=== PATIENT | female | born 1965 | race African-American/Black ===

== ENCOUNTER 2016-09-22 22:13 | Inpatient (IN) | payer OTHER ==
[~2016-09-22] VITALS: Ht 177.8 cm; Wt 122.4 kg
[2016-09-23] VITALS (13 sets, daily range): BP systolic 82–151; BP diastolic 53–88; PULSE 93–114; RESP 17–20; Ht 177.8 cm; Wt 122.4 kg
[2016-09-23] MEDS ORDERED: IBUP800T25 PO (01:53)
[2016-09-23] MEDS ORDERED: LORA10TA3 PO (01:53)
[2016-09-23] MEDS ORDERED: ELVI1TAB3 PO (01:53)
[2016-09-23] MEDS ORDERED: BENA20TA48 PO (01:53)
[2016-09-23] MEDS ORDERED: BEN50 PO (01:53)
[2016-09-23] MEDS ORDERED: ACET500T98 PO (01:53)
--- NOTE | 2016-09-23 02:10 | HP ---
Date/Time of Note Date/Time of Note DATE: 09/23/16 TIME: 02:10 Assessment/Plan VTE Prophylaxis VTE Prophylaxis Intervention: other (Lovenox) Assessment/Plan Assessment/Plan 1) COPD Exacerbation - DuoNeb QID - Albuterol Neb Q 2 hours prn - Prednisone daily - 5 days of steroids total, starting 09/22/16 unless taper is indicated at discharge - Biaxin 500 mg BID - Guaifenecin LA 1200 mg BID 2) HIV - Need to obtain patient's home medication, Genvoya, or work out alternative with hospital pharmacy - Pharmacist and patient's RN notified. HPI/ROS Admit Date/Time Admit Date/Time Sep 23, 2016 at 00:24 Hx of Present Illness This is a transfer patient from [facility]. She is an HIV patient and HIV smoker who "quit just less than 30 days ago". She presented to [facility] with SOB x 2 days. No fever. WBCs = 8.0. CXR with no acute findings. She was thought to be having a COPD Exacerbation, though patient denied having that diagnosis, and was given steroids and breathing treatments. She improved, and the plan was to send her home, but she started wheezing again. The decision was made to transfer her. Additional labs done at [facility] include: Urin HCG: Negative; Influenza A & B: Negative; Troponin I < 0.012. ROS Constitutional: No chills, No febrile Eyes: No discharge, No visual change ENT: No congestion, No dysphagia, No sore throat Respiratory: cough, shortness of breath Cardiovascular: No chest pain, No edema, No palpitations Gastrointestinal: No diarrhea, No nausea, No vomiting Genitourinary: No dysuria, No hematuria Musculoskeletal: No back pain, No neck pain Skin: No pruritis, No rash Neurologic: headache (Tylenol ES, 2 tabs offered, but patient requests Sparks. "It is what works for me."), No dizziness, No focal-weakness Endocrine: No polydypsia, No polyuria Lymphatic: No lymphadema, No tender nodes Immunologic: immunodeficiency, No pruritis PMH/Family/Social Past Medical History Medical History: other (HIV) Social History Smoking Status: Former smoker (Heavy smoker who "quit less than 30 days ago.) Exam/Review of Systems Vital Signs Vitals Vital Signs Date Time Temp Pulse Resp B/P Pulse Ox O2 Delivery O2 Flow Rate FiO2 09/23/16 01:11 98.2 117 18 139/64 94 Exam Constitutional: alert, oriented, other (Sleeping on left side. Obese female in NAD, breathing deeply and noisily, rouses easily.) Psych: no complaints Head: atraumatic, normocephalic Eyes: nl sclera ENMT: mucosa pink and moist, nl external ears & nose, nl lips & teeth Neck: non-tender, supple Respiratory: normal air movement, No clear to auscultation (Coarse breath sounds throughout) Cardiovascular: nl pulses, regular rate and rhythm Gastrointestinal: non-tender (Unable to palpate internal organs well due to body habitus,), soft (obese) Neurological: CLINICAL ADMINISTRATIVE COORDINATOR II-XII intact (Grossly), nl mental status, nl speech, nl strength Skin: nl turgor (Normal temperature and moisture. No obvious rash.) Lymph: nl lymph nodes (Cervical) RICHAR MENJIVAR DO Sep 23, 2016 02:10
[2016-09-23] MEDS ORDERED: NACL 0.9% 3 ML SYG IV SCH (02:30)
[2016-09-23] MEDS ORDERED: ONDANSETRON 4 MG TAB PO PRN (02:30)
[2016-09-23] MEDS: ALBUTEROL 0.083% (NEB) 2.5 MG/3 ML AMP HHN PRN ×2 (03:18→03:19)
[2016-09-23] MEDS ORDERED: IBUPROFEN 800 MG TAB PO PRN (07:30)
[2016-09-23] MEDS ORDERED: ACETAMINOPHEN 500 MG TAB PO PRN (07:30)
[2016-09-23] MEDS: BENAZEPRIL 20 MG TAB NGT SCH (08:41)
[2016-09-23] MEDS: ENOXAPARIN 30 MG/0.3 ML SYG SC SCH (08:48)
[2016-09-23] MEDS ORDERED: predniSONE 20 MG TAB PO SCH (09:00)
[2016-09-23] MEDS ORDERED: ALBUTEROL/IPRATROPIUM (NEB) 3 ML AMP HHN SCH (09:00)
[2016-09-23] MEDS: CLARITHROMYCIN 500 MG TAB PO SCH ×2 (09:33→20:08)
[2016-09-23] MEDS: GUAIFENESIN LA 600 MG TABSR PO SCH ×2 (09:33→20:08)
[2016-09-23] MEDS: LORATADINE 10 MG TAB GTB SCH (09:42)
[2016-09-23] MEDS ORDERED: ALBUTEROL/IPRATROPIUM (NEB) 3 ML AMP HHN PRN (12:00)
[2016-09-23 12:30] LABS: ADD SCAN DIFF NO
[2016-09-23 12:43] LABS: HEMATOCRIT 34.6 % (37.0-47.0); HEMOGLOBIN 10.8 g/dl (12.0-16.0); LYMPHOCYTES # 0.9 10^3/ul (0.8-2.9); LYMPHOCYTES % 8.1 % (15.0-51.0); MEAN CORPUSCULAR HEMOGLOBIN 26.9 pg (29.0-33.0); MEAN CORPUSCULAR HGB CONC 31.2 g/dl (32.0-37.0); MEAN CORPUSCULAR VOLUME 86.1 fl (82.0-101.0); MEAN PLATELET VOLUME 11.2 fl (7.4-10.4); MONOCYTE # 0.8 10^3/ul (0.3-0.9); MONOCYTES % 6.8 % (0.0-11.0); NEUTROPHIL # 9.6 10^3/ul (1.6-7.5); NEUTROPHILS % 83.6 % (39.0-77.0); PLATELET COUNT 181 10^3/UL (140-415); RED BLOOD COUNT 4.02 10^6/ul (4.20-5.40); RED CELL DISTRIBUTION WIDTH 15.5 % (11.5-14.5); WHITE BLOOD COUNT 11.5 10^3/ul (4.8-10.8)
[2016-09-23 12:45] LABS: ALBUMIN 4.5 g/dl (3.3-4.9)
[2016-09-23 12:46] LABS: POTASSIUM 4.7 mmol/L (3.5-5.1)
[2016-09-23 12:48] LABS: ALBUMIN/GLOBULIN RATIO 1.36; CREATININE 0.82 mg/dl (0.44-1.00); TOTAL PROTEIN 7.8 g/dl (6.1-8.1)
[2016-09-23 12:49] LABS: CALCIUM 9.9 mg/dl (8.4-10.2); MAGNESIUM 2.3 mg/dl (1.7-2.5); PHOSPHORUS 2.5 mg/dl (2.5-4.9)
[2016-09-23] MEDS: ALBUTEROL/IPRATROPIUM (NEB) 3 ML AMP HHN SCH ×3 (12:51→21:25)
[2016-09-23 13:20] LABS: THYROID STIMULATING HORMONE 0.187 MIU/L (0.465-4.680)
[2016-09-23] MEDS: METHYLPREDNISOLONE 125 MG INJ IV SCH ×3 (13:28→23:30)
[2016-09-23 14:51] LABS: ADD UMIC NO; URINE BILIRUBIN (Dip) NEGATIVE (NEGATIVE); URINE BLOOD (Dip) NEGATIVE (NEGATIVE); URINE COLOR LT. YELLOW (YELLOW); URINE KETONES (Dip) NEGATIVE (NEGATIVE); URINE LEUKOCYTE ESTERASE (Dip) NEGATIVE (NEGATIVE); URINE NITRITE (Dip) NEGATIVE (NEGATIVE); URINE TOTAL PROTEIN (Dip) NEGATIVE (NEGATIVE); URINE UROBILINOGEN (Dip) 0.2 E.U./dL (0.1-1.0)
[2016-09-23 15:14] LABS: OPIATES Positive (NEGATIVE)
[2016-09-23 15:21] LABS: BARBITURATES Negative (NEGATIVE); BENZODIAZEPINES Negative (NEGATIVE); CANNABINOIDS Negative (NEGATIVE); COCAINE Negative (NEGATIVE)
--- NOTE | 2016-09-23 15:39 | RADRPT ---
PROCEDURE: XR Chest. CLINICAL INDICATION: Shortness of breath. TECHNIQUE: Single frontal view. COMPARISON: None. FINDINGS: There are low lung volumes and mild atelectasis at the lung bases. There is mild interstitial diseas e bilaterally consistent with pulmonary edema. The lungs are otherwise clear. The heart is mildly enlarged. There is no pleural effusion. There is no pneumothorax. IMPRESSION: 1. Low lung volumes. 2. Mild atelectasis at the lung bases. 3. Mild interstitial pulmonary disease consistent with pulmonary edema. 4. Mild cardiomegaly. 5. Otherwise normal chest x-ray. RPTAT: QQ .Ranulfo Vasquez MD, MD Date Time Electronically viewed and signed by .Ranulfo Vasquez MD, on 09/23/2016 15:39 .R/
--- NOTE | 2016-09-23 16:16 | CONS ---
DATE OF ADMISSION: 09/23/2016 DATE OF CONSULTATION: 09/23/2016 TYPE OF CONSULTATION: Infectious Disease. REASON FOR CONSULTATION: Antibiotic management. HISTORY OF PRESENT ILLNESS: Eleonora Bermudez is a 51-year-old female transferred from [facility]. She is HIV positive and presented to [facility] with shortness of breath for 2 days' duration. No fever. White count was 8000. Chest x-ray: No acute finding. She is a smoker and was thought to have COPD exacerbation. The patient denied that diagnosis. She was given steroids and breathing treatments and improved, but then she started to wheeze again. She was transferred here for insura ide purposes. Influenza A and B are negative. PAST MEDICAL HISTORY: She is HIV positive. FAMILY HISTORY: Noncontributory. SOCIAL HISTORY: She is a former smoker. She quit less than 30 days ago. She does not drink or abu se drugs as far as we know. MEDICATIONS: Include Genvoya which is a combination of emtricitabine 200 mg, tenofovir 10 mg, elvit egravir 150 mg, and cobicistat 150 mg. ALLERGIES: NONE TO PENICILLIN, SULFA, OR FOODS. PAST MEDICAL HISTORY: As outlined. The patient was also on prednisone and Biaxin on transfer. REVIEW OF SYSTEMS: Noncontributory. PHYSICAL EXAMINATION: GENERAL: The patient is an obese female who is awake, responsive, in no acute distress. VITAL SIGNS: Stable. She is afebrile. SKIN: Without generalized rash. HEENT: Within normal limits. NECK: Supple. LYMPH NODES: None palpable. CHEST: Decreased breath sounds at the bases. HEART: Without murmur or gallop. ABDOMEN: Soft, nontender, without organosplenomegaly or masses. EXTREMITIES: Without cyanosis, clubbing, or edema. RECTAL AND GENITAL: Deferred. NEUROLOGIC: No focal neurological abnormalities. IMPRESSION AND PLAN: The patient comes in with chronic obstructive pulmonary disease and exacerbati on. We have to find out what her CD4 is and her viral load. She is on Biaxin at the current time. Blood cultures have been ordered. Urine culture is ordered. Her hCG is negative. Lymphocyte subs et was ordered. I will dictate my findings to Dr. Karyn Berg. Dictated By: HOUSTON MCKEON MD, JD/JASS Conf#: [id number] [facility]#: [id number]
--- NOTE | 2016-09-23 16:56 | CONS ---
DATE OF ADMISSION: 09/23/2016 DATE OF CONSULTATION: 09/23/2016 Thank you, Dr. Berg, for this consultation. HISTORY OF PRESENT ILLNESS: This is a pleasant 51-year-old lady with extensive tobacco history, als o history of HIV, came in with increasing shortness of breath, orthopnea, PND for the past few days without improvement. Initial workup including test, influenza A and B were negative with negative troponins. Chest x-ray on admission was unremarkable. She does have an extensive tobacco history, smokes half a pack per day for 30+ years. PAST MEDICAL HISTORY: HIV and tobacco use. MEDICATIONS: Per chart. ALLERGIES: NONE. SOCIAL HISTORY: Positive tobacco history, occasional alcohol. FAMILY HISTORY: Noncontributory. SYSTEMS REVIEW: A 12-point review of systems was negative other than that mentioned above. PHYSICAL EXAMINATION: GENERAL: Well-nourished, well-developed lady, comfortable at rest, no acute distress. VITAL SIGNS: Currently afebrile, pulse is 100, blood pressure 114/80, O2 saturation 96% on 3 L nasa l cannula. NECK: Supple. No JVD or lymphadenopathy. CARDIAC: S1, S2, no added sounds or murmurs. CHEST: Diminished air entry bilaterally. ABDOMEN: Soft, nontender. No guarding or rebound. EXTREMITIES: No cyanosis, clubbing, edema. NEUROLOGIC: Grossly intact. No focal deficits. LABORATORY DATA: White count 11.5, hemoglobin 10.8, platelets 181. Chemistry within normal limits. IMPRESSION AND PLAN: 1. Chronic obstructive pulmonary disease with exacerbation. 2. Hypoxemic respiratory failure. 3. History of human immunodeficiency virus. 4. Unlikely to have a history of opportunistic lung infection given her compliance with her HIV med ications. Dictated By: NICK FLORES MD SV/JASS Conf#: [id number] DID#: [id number]
--- NOTE | 2016-09-23 17:08 | CONS ---
DATE OF ADMISSION: 09/23/2016 DATE OF CONSULTATION: ADDENDUM Further discussion with the patient elucidated the fact that her CD4 count is 148 and her viral load was in the 24,000s and that she did not react well with the Genvoya. She wanted the Complera, but it is not available. I am going to put her on Atripla and also on Bactrim-DS 1 tablet per day. Dictated By: HOUSTON MCKEON MD, JD/JASS Conf#: [id number] DID#: [id number]
[2016-09-23] MEDS: TRIMETHOPRIM/SULFAMETHOX (DS) TAB PO SCH (19:03)
[2016-09-23] MEDS: HYDROCODONE/APAP (5/325) TAB PO PRN (19:04)
[2016-09-23] MEDS: EMTRICITABINE/TENOFOVIR TAB PO SCH (20:08)
[2016-09-23] MEDS: DIPHENHYDRAMINE 50 MG CAP PO PRN (20:08)
[2016-09-23] MEDS: GABAPENTIN 400 MG CAP PO SCH (20:08)
[2016-09-23] MEDS: EFAVIRENZ 600 MG TAB PO SCH (20:08)
[2016-09-24] VITALS (10 sets, daily range): BP systolic 132–153; BP diastolic 76–92; PULSE 91–108; RESP 18–19
[2016-09-24] MEDS: METHYLPREDNISOLONE 125 MG INJ IV SCH ×3 (05:58→17:47)
[2016-09-24 07:40] LABS: ADD SCAN DIFF NO
[2016-09-24 07:51] LABS: ABNORMAL IP MESSAGE 1; BASOPHILS % 0.1 % (0.0-2.0); HEMATOCRIT 35.9 % (37.0-47.0); HEMOGLOBIN 10.9 g/dl (12.0-16.0); LYMPHOCYTES # 1.3 10^3/ul (0.8-2.9); LYMPHOCYTES % 9.7 % (15.0-51.0); MEAN CORPUSCULAR HEMOGLOBIN 26.4 pg (29.0-33.0); MEAN CORPUSCULAR HGB CONC 30.4 g/dl (32.0-37.0); MEAN CORPUSCULAR VOLUME 86.9 fl (82.0-101.0); MEAN PLATELET VOLUME 11.8 fl (7.4-10.4); MONOCYTE # 0.7 10^3/ul (0.3-0.9); NEUTROPHIL # 11.1 10^3/ul (1.6-7.5); NEUTROPHILS % 80.1 % (39.0-77.0); PLATELET COUNT 198 10^3/UL (140-415); RED BLOOD COUNT 4.13 10^6/ul (4.20-5.40); RED CELL DISTRIBUTION WIDTH 15.6 % (11.5-14.5); WHITE BLOOD COUNT 13.8 10^3/ul (4.8-10.8)
[2016-09-24] MEDS: ALBUTEROL/IPRATROPIUM (NEB) 3 ML AMP HHN SCH ×4 (08:05→20:50)
[2016-09-24 08:06] LABS: POTASSIUM 5.5 mmol/L (3.5-5.1)
[2016-09-24 08:07] LABS: MAGNESIUM 2.5 mg/dl (1.7-2.5); PHOSPHORUS 3.3 mg/dl (2.5-4.9)
[2016-09-24 08:08] LABS: CREATININE 0.79 mg/dl (0.44-1.00)
[2016-09-24 08:09] LABS: CALCIUM 9.8 mg/dl (8.4-10.2)
[2016-09-24] MEDS: ENOXAPARIN 30 MG/0.3 ML SYG SC SCH (08:53)
[2016-09-24] MEDS: TRIMETHOPRIM/SULFAMETHOX (DS) TAB PO SCH (08:54)
[2016-09-24] MEDS: GUAIFENESIN LA 600 MG TABSR PO SCH ×2 (08:54→22:37)
[2016-09-24] MEDS: BENAZEPRIL 20 MG TAB NGT SCH (08:54)
[2016-09-24] MEDS: LORATADINE 10 MG TAB GTB SCH (08:54)
[2016-09-24] MEDS: CLARITHROMYCIN 500 MG TAB PO SCH ×2 (08:55→22:37)
[2016-09-24] MEDS: HYDROCODONE/APAP (5/325) TAB PO PRN ×2 (08:55→17:48)
--- NOTE | 2016-09-24 11:11 | PN ---
Date/Time of Note Date/Time of Note DATE: 09/24/16 TIME: 11:10 Assessment/Plan VTE Prophylaxis VTE Prophylaxis Intervention: SCD's Lines/Catheters [facility] Saline Lock Urinary Cath still in place: No Assessment/Plan Assessment/Plan 1) COPD Exacerbation - DuoNeb QID - Albuterol Neb Q 2 hours prn - Prednisone daily - 5 days of steroids total, starting 09/22/16 unless taper is indicated at discharge - Biaxin 500 mg BID - Guaifenecin LA 1200 mg BID pulmonary is also following 2) HIV - s/p ID consult, started on HIV meds Subjective 24 Hr Interval Summary Free Text/Dictation stable , no SOB but HR in 110-120s Exam/Review of Systems Vital Signs Vitals Vital Signs Date Time Temp Pulse Resp B/P Pulse Ox O2 Delivery O2 Flow Rate FiO2 09/24/16 08:16 96 09/24/16 08:08 3.0 09/24/16 08:08 20 95 Nasal Cannula 09/24/16 08:00 98.0 153/92 09/23/16 21:29 21 Intake and Output 09/23/16 09/23/16 09/24/16 15:00 23:00 07:00 Intake Total 1300 ml Balance 1300 ml Exam NECK: Supple. No JVD or lymphadenopathy. CARDIAC: S1, S2, no added sounds or murmurs. CHEST: Diminished air entry bilaterally. ABDOMEN: Soft, nontender. No guarding or rebound. EXTREMITIES: No cyanosis, clubbing, edema. NEUROLOGIC: Grossly intact. No focal deficits. Results Result Diagram: 09/24/16 0626 09/24/16 0626 Results 24 hrs Laboratory Tests Test 09/23/16 12:00 09/23/16 14:05 09/24/16 06:26 Alanine Aminotransferase (ALT/SGPT) 27 Albumin 4.5 Albumin/Globulin Ratio 1.36 Alkaline Phosphatase 86 Anion Gap 15 16 Aspartate Amino Transf (AST/SGOT) 46 Basophils # 0.0 0.0 Basophils % 0.0 0.1 Blood Urea Nitrogen 17 20 Calcium Level 9.9 9.8 Carbon Dioxide Level 30 32 H Chloride Level 99 99 Creatinine 0.82 0.79 Direct Bilirubin 0.00 Eosinophils # 0.0 0.0 Eosinophils % 0.0 0.0 Free Thyroxine 0.49 L Globulin 3.30 H Glucose Level 208 185 Hematocrit 34.6 L 35.9 L Hemoglobin 10.8 L 10.9 L Hemoglobin A1c 5.9 Indirect Bilirubin 0.0 Lymphocytes # 0.9 1.3 Lymphocytes % 8.1 L 9.7 L Magnesium Level 2.3 2.5 Mean Corpuscular Hemoglobin 26.9 L 26.4 L Mean Corpuscular Hemoglobin Concent 31.2 L 30.4 L Mean Corpuscular Volume 86.1 86.9 Mean Platelet Volume 11.2 H 11.8 H Monocytes # 0.8 0.7 Monocytes % 6.8 5.0 Neutrophils # 9.6 H 11.1 H Neutrophils % 83.6 H 80.1 H Nucleated Red Blood Cells # 0.0 0.0 Nucleated Red Blood Cells % 0.0 0.0 Phosphorus Level 2.5 3.3 Platelet Count 181 198 Potassium Level 4.7 5.5 H Red Blood Count 4.02 L 4.13 L Red Cell Distribution Width 15.5 H 15.6 H Sodium Level 139 141 Thyroid Stimulating Hormone (TSH) 0.187 L Total Bilirubin 0.0 L Total Protein 7.8 White Blood Count 11.5 H 13.8 H Urine Amphetamines Screen Negative Urine Barbiturates Negative Urine Benzodiazepines Screen Negative Urine Bilirubin NEGATIVE Urine Cannabinoids Negative Urine Clarity CLEAR Urine Cocaine Screen Negative Urine Color LT. YELLOW Urine Glucose 0.25% H Urine Hemoglobin NEGATIVE Urine Ketones NEGATIVE Urine Leukocyte Esterase NEGATIVE Urine Nitrite NEGATIVE Urine Opiates Screen Positive Urine Test NEGATIVE Urine Specific [place] 1.020 Urine Total Protein NEGATIVE Urine Urobilinogen 0.2 E.U./dL Urine pH 6.0 Cholesterol Level 271 H Cholesterol/HDL Ratio 3.0 HDL Cholesterol 90 LDL Cholesterol, Calculated 156 Triglycerides Level 126 Medications Medications Current Medications Ondansetron HCl (Zofran Tab) 4 mg Q6H PRN PO NAUSEA AND/OR VOMITING; Start 09/23 at 02:30 Guaifenesin (Mucinex) 1,200 mg BID PO Last administered on 09/24/16 08:54; Admin Dose 1,200 MG; Start 09/23/16 at 09:30 Clarithromycin (Biaxin) 500 mg BID PO Last administered on 09/24/16 08:55; Admin Dose 500 MG; Start 09/23/16 at 09:30 Benazepril HCl (Lotensin) 20 mg DAILY NGT Last administered on 09/24/16 08:54; Admin Dose 20 MG; Start 09/23/16 at 09:00 Gabapentin (Neurontin) 800 mg HS PO Last administered on 09/23/16 20:08; Admin Dose 800 MG; Start 09/23/16 at 21:00 Loratadine (Claritin) 10 mg DAILY GTB Last administered on 09/24/16 08:54; Admin Dose 10 MG; Start 09/23/16 at 09:00 Diphenhydramine HCl (Benadryl) 50 mg HS PRN PO INSOMNIA Last administered on 20:08; Admin Dose 50 MG; Start 09/23/16 at 07:30 Ibuprofen (Motrin) 800 mg Q8 PRN PO PAIN Last administered on 09/23/16 13:28; Admin Dose 800 MG; Start 09/23/16 at 07:30 Acetaminophen (Tylenol Tab) 1,000 mg Q4H PRN PO PAIN AND OR ELEVATED TEMP Last administered on 09/23/16 08:42; Admin Dose 1,000 MG; Start 09/23/16 at 07:30 Enoxaparin Sodium (Lovenox) 30 mg DAILY SC Last administered on 09/24/16 08:53 ; Admin Dose 30 MG; Start 09/23/16 at 09:00 Methylprednisolone Sodium Succinate (Solu-Medrol) 60 mg Q6 IV Last administered on 09/24/16 05:58; Admin Dose 60 MG; Start 09/23/16 at 12:30 Efavirenz (Sustiva) 600 mg QHS PO Last administered on 09/23/16 20:08; Admin Dose 600 MG; Start 09/23/16 at 21:00 Emtricitabine/ Tenofovir (Truvada) 1 tab QHS PO Last administered on 09/23/16 20:08; Admin Dose 1 TAB; Start 09/23/16 at 21:00 Trimethoprim/ Sulfamethoxazole (Bactrim (Ds)) 1 tab DAILY PO Last administered on 09/24/16 08:54; Admin Dose 1 TAB; Start 09/23/16 at 18:00 Acetaminophen/ Hydrocodone Bitart ([place] (5/325)) 1 tab Q6H PRN PO PAIN LEVEL 6 -10 Last administered on 09/24/16 08:55; Admin Dose 1 TAB; Start 09/23/16 at 19: 00 JAKY KNOTT MD Sep 24, 2016 11:11
[2016-09-24] MEDS ORDERED: NA POLYST SULFON 15 GM/60 ML BTL PO ONE (11:30)
[2016-09-24] MEDS ORDERED: DOCUSATE SODIUM 100 MG CAP PO PRN (11:30)
--- NOTE | 2016-09-24 12:47 | PN ---
DATE: 09/24/2016 SUBJECTIVE: Patient Aidan remains stable this morning, still has mild expiratory wheezing and short ness of breath on exertion. PHYSICAL EXAMINATION: VITAL SIGNS: Temperature 98, pulse 96, blood pressure 153/92, O2 saturation 96% on 3 L nasal cannul a. NECK: Supple. No JVD or lymphadenopathy. CARDIAC: S1, S2, no added sounds or murmurs. CHEST: Diminished air entry bilaterally with expiratory wheezing. ABDOMEN: Soft, nontender. No guarding or rebound, obese. EXTREMITIES: No cyanosis, clubbing, edema. NEUROLOGIC: Generalized weakness. LABORATORY DATA: White count 13.8, hemoglobin 10.9, platelets 198, BUN 20, creatinine 0.79. IMPRESSION AND PLAN: 1. Chronic obstructive pulmonary disease with exacerbation. 2. Hypoxemic respiratory failure. 3. Probable underlying obstructive sleep apnea. 4. History of human immunodeficiency virus. PLAN: 1. Continue steroids. 2. Bronchodilators. 3. Encourage out of bed. 4. DVT and GI prophylaxis. 5. Outpatient pulmonary function tests and sleep study. Dictated By: NICK DELONG/JASS Conf#: [id number] DID#: [id number]
[2016-09-24] MEDS ORDERED: LEVOFLOXACIN 500 MG TAB PO ONE (13:30)
--- NOTE | 2016-09-24 13:43 | PN ---
DATE: 09/24/2016 SUBJECTIVE: No acute events. The patient is alert, looks comfortable, no fevers. She is slightly short of breath after ambulation. She is at 3 liters nasal cannula, saturating 98%. WBC 13.8, H and H 10.9 and 35.9, platelets 198. BUN 20, creatinine 0.79. MICROBIOLOGY: Blood culture negative. Urine culture pending. DIAGNOSTICS: Chest x-ray on admission revealed mild atelectasis at the lung bases and pulmonary edema. ANTIMICROBIALS: Patient is on: 1. Sustiva. 2. Truvada. 3. Bactrim-DS 1 tablet daily. 4. She is also on Biaxin. PHYSICAL EXAMINATION: GENERAL: This is a morbidly obese, middle-aged -[place] woman who is alert, in no distress. HEENT: Head atraumatic, normocephalic. Sclerae anicteric. Buccal mucosa dry. NECK: Supple. CHEST: Rise symmetrical. Breath sounds with bilateral rhonchi and expiratory wheezes. HEART: S1, S2. ABDOMEN: Soft. Bowel tones present. EXTREMITIES: No cyanosis. ASSESSMENT: 1. Acute bronchitis with chronic obstructive pulmonary disease exacerbation. 2. Acquired immune deficiency syndrome with CD4 count is 148 per patient's report, remains on antiretrovirals and Bactrim for PCP prophylaxis. 3. Morbid obesity. 4. Hypoxemic respiratory failure. PLAN: Patient remains stable off on nasal cannula. She is on Bactrim for PCP prophylaxis. She is on IV steroids. We will add Levaquin to the regimen and continue observing her and follow chest x-rays. Above was discussed with Dr. U[place]oa. Dictated By: EDUARD BRITO CULINARY ART TEACHER for HOUSTON GLOVER/JASS Conf#: [id number] DID#: [id number] JACQUI
[2016-09-24] MEDS: EMTRICITABINE/TENOFOVIR TAB PO SCH (22:36)
[2016-09-24] MEDS: GABAPENTIN 400 MG CAP PO SCH (22:36)
[2016-09-24] MEDS: EFAVIRENZ 600 MG TAB PO SCH (22:41)
[2016-09-24] MEDS: DIPHENHYDRAMINE 50 MG CAP PO PRN (22:43)
[2016-09-25] VITALS (10 sets, daily range): BP systolic 142–170; BP diastolic 69–98; PULSE 74–93; RESP 20–21
[2016-09-25] MEDS: METHYLPREDNISOLONE 125 MG INJ IV SCH ×5 (01:00→22:54)
[2016-09-25] MEDS: LEVOFLOXACIN 500 MG TAB PO SCH (06:06)
[2016-09-25 07:57] LABS: ADD SCAN DIFF NO
[2016-09-25 08:03] LABS: ABNORMAL IP MESSAGE 1; BASOPHIL # 0.1 10^3/ul (0.0-0.1); BASOPHILS % 0.5 % (0.0-2.0); HEMATOCRIT 35.5 % (37.0-47.0); HEMOGLOBIN 11.1 g/dl (12.0-16.0); LYMPHOCYTES # 1.2 10^3/ul (0.8-2.9); LYMPHOCYTES % 9.7 % (15.0-51.0); MEAN CORPUSCULAR HEMOGLOBIN 26.9 pg (29.0-33.0); MEAN CORPUSCULAR HGB CONC 31.3 g/dl (32.0-37.0); MEAN PLATELET VOLUME 11.7 fl (7.4-10.4); MONOCYTE # 0.6 10^3/ul (0.3-0.9); MONOCYTES % 5.1 % (0.0-11.0); NEUTROPHIL # 9.4 10^3/ul (1.6-7.5); NEUTROPHILS % 77.3 % (39.0-77.0); NUCLEATED RED BLOOD CELLS% 0.2 /100WBC (0.0-0.0); PLATELET COUNT 222 10^3/UL (140-415); RED BLOOD COUNT 4.13 10^6/ul (4.20-5.40); RED CELL DISTRIBUTION WIDTH 15.2 % (11.5-14.5); WHITE BLOOD COUNT 12.2 10^3/ul (4.8-10.8)
[2016-09-25 08:21] LABS: INR 1.04; PROTIME 13.6 Sec (12.2-14.2); PT RATIO 1.1
[2016-09-25 08:22] LABS: PARTIAL THROMBOPLASTIN TIME 27.2 Sec (25.0-35.0); POTASSIUM 3.9 mmol/L (3.5-5.1)
[2016-09-25] MEDS: ALBUTEROL/IPRATROPIUM (NEB) 3 ML AMP HHN SCH ×4 (08:23→21:00)
[2016-09-25 08:25] LABS: CREATININE 0.71 mg/dl (0.44-1.00)
[2016-09-25 08:26] LABS: CALCIUM 9.2 mg/dl (8.4-10.2)
[2016-09-25] MEDS: ENOXAPARIN 30 MG/0.3 ML SYG SC SCH (08:50)
[2016-09-25] MEDS: BENAZEPRIL 20 MG TAB NGT SCH (08:50)
[2016-09-25] MEDS: LORATADINE 10 MG TAB GTB SCH (08:50)
[2016-09-25] MEDS: TRIMETHOPRIM/SULFAMETHOX (DS) TAB PO SCH (08:51)
[2016-09-25] MEDS: GUAIFENESIN LA 600 MG TABSR PO SCH ×2 (08:51→21:00)
[2016-09-25] MEDS: HYDROCODONE/APAP (5/325) TAB PO PRN ×2 (08:51→20:58)
[2016-09-25 09:58] LABS: LYMPHOCYTE - CD4/CD8 RATIO 1.08 (0.86-5.00)
[2016-09-25] MEDS: CLARITHROMYCIN 500 MG TAB PO SCH ×2 (10:45→22:30)
--- NOTE | 2016-09-25 12:06 | PN ---
Date/Time of Note Date/Time of Note DATE: 09/25/16 TIME: 12:05 Assessment/Plan VTE Prophylaxis VTE Prophylaxis Intervention: SCD's Lines/Catheters IV Catheter Type (from [facility]): Saline Lock Urinary Cath still in place: No Assessment/Plan Assessment/Plan 1) COPD Exacerbation - DuoNeb QID - Albuterol Neb Q 2 hours prn - Prednisone daily - 5 days of steroids total, starting 09/22/16 unless taper is indicated at discharge - Biaxin 500 mg BID - Guaifenecin LA 1200 mg BID pulmonary is also following 2) HIV - s/p ID consult, started on HIV meds Subjective 24 Hr Interval Summary Free Text/Dictation pt stable,afebrile, Exam/Review of Systems Vital Signs Vitals Vital Signs Date Time Temp Pulse Resp B/P Pulse Ox O2 Delivery O2 Flow Rate FiO2 09/25/16 08:30 Nasal Cannula 3.0 09/25/16 08:27 74 09/25/16 08:24 22 95 09/25/16 07:22 98.1 147/69 09/24/16 20:50 21 Intake and Output 09/24/16 09/24/16 09/25/16 15:00 23:00 07:00 Intake Total 1300 ml 400 ml Balance 1300 ml 400 ml Exam NECK: Supple. No JVD or lymphadenopathy. CARDIAC: S1, S2, no added sounds or murmurs. CHEST: Diminished air entry bilaterally. ABDOMEN: Soft, nontender. No guarding or rebound. EXTREMITIES: No cyanosis, clubbing, edema. NEUROLOGIC: Grossly intact. No focal deficits. Results Result Diagram: 09/25/16 0710 09/25/16 0710 Results 24 hrs Laboratory Tests Test 09/25/16 07:10 Activated Partial Thromboplast Time 27.2 Anion Gap 14 Basophils # 0.1 Basophils % 0.5 Blood Urea Nitrogen 18 Calcium Level 9.2 Carbon Dioxide Level 33 H Chloride Level 97 Creatinine 0.71 Eosinophils # 0.0 Eosinophils % 0.0 Glucose Level 172 Hematocrit 35.5 L Hemoglobin 11.1 L INR International Normalized Ratio 1.04 Lymphocytes # 1.2 Lymphocytes % 9.7 L Mean Corpuscular Hemoglobin 26.9 L Mean Corpuscular Hemoglobin Concent 31.3 L Mean Corpuscular Volume 86.0 Mean Platelet Volume 11.7 H Monocytes # 0.6 Monocytes % 5.1 Neutrophils # 9.4 H Neutrophils % 77.3 H Nucleated Red Blood Cells # 0.0 Nucleated Red Blood Cells % 0.2 H Platelet Count 222 Potassium Level 3.9 Prothrombin Time 13.6 Prothrombin Time Ratio 1.1 Red Blood Count 4.13 L Red Cell Distribution Width 15.2 H Sodium Level 140 White Blood Count 12.2 H Medications Medications Current Medications Ondansetron HCl (Zofran Tab) 4 mg Q6H PRN PO NAUSEA AND/OR VOMITING; Start 09/23 at 02:30 Guaifenesin (Mucinex) 1,200 mg BID PO Last administered on 09/25/16 08:51; Admin Dose 1,200 MG; Start 09/23/16 at 09:30 Clarithromycin (Biaxin) 500 mg BID PO Last administered on 09/25/16 10:45; Admin Dose 500 MG; Start 09/23/16 at 09:30 Benazepril HCl (Lotensin) 20 mg DAILY NGT Last administered on 09/25/16 08:50 ; Admin Dose 20 MG; Start 09/23/16 at 09:00 Gabapentin (Neurontin) 800 mg HS PO Last administered on 09/24/16 22:36; Admin Dose 800 MG; Start 09/23/16 at 21:00 Loratadine (Claritin) 10 mg DAILY GTB Last administered on 09/25/16 08:50; Admin Dose 10 MG; Start 09/23/16 at 09:00 Diphenhydramine HCl (Benadryl) 50 mg HS PRN PO INSOMNIA Last administered on 22:43; Admin Dose 50 MG; Start 09/23/16 at 07:30 Ibuprofen (Motrin) 800 mg Q8 PRN PO PAIN Last administered on 09/23/16 13:28; Admin Dose 800 MG; Start 09/23/16 at 07:30 Acetaminophen (Tylenol Tab) 1,000 mg Q4H PRN PO PAIN AND OR ELEVATED TEMP Last administered on 09/23/16 08:42; Admin Dose 1,000 MG; Start 09/23/16 at 07:30 Enoxaparin Sodium (Lovenox) 30 mg DAILY SC Last administered on 09/24/16 08:53 ; Admin Dose 30 MG; Start 09/23/16 at 09:00 Methylprednisolone Sodium Succinate (Solu-Medrol) 60 mg Q6 IV Last administered on 09/25/16 06:06; Admin Dose 60 MG; Start 09/23/16 at 12:30 Efavirenz (Sustiva) 600 mg QHS PO Last administered on 09/24/16 22:41; Admin Dose 600 MG; Start 09/23/16 at 21:00 Emtricitabine/ Tenofovir (Truvada) 1 tab QHS PO Last administered on 09/24/16 22:36; Admin Dose 1 TAB; Start 09/23/16 at 21:00 Trimethoprim/ Sulfamethoxazole (Bactrim (Ds)) 1 tab DAILY PO Last administered on 09/25/16 08:51; Admin Dose 1 TAB; Start 09/23/16 at 18:00 Acetaminophen/ Hydrocodone Bitart ([place] (5/325)) 1 tab Q6H PRN PO PAIN LEVEL 6 -10 Last administered on 09/25/16 08:51; Admin Dose 1 TAB; Start 09/23/16 at 19: 00 Docusate Sodium (Colace) 200 mg BID PRN PO CONSTIPATION; Start 09/24/16 at 11:30 Levofloxacin (Levaquin) 500 mg DAILY@06 PO Last administered on 09/25/16 06:06 ; Admin Dose 500 MG; Start 09/25/16 at 06:00 JAKY KNOTT MD Sep 25, 2016 12:06
--- NOTE | 2016-09-25 12:17 | CONS ---
Date/Time of Note Date/Time of Note DATE: 09/25/16 TIME: 12:15 Assessment/Plan Assessment/Plan Chief Complaint/Hosp Course SUBJECTIVE: No acute events. The patient is alert, looks comfortable, no fevers. MICROBIOLOGY: Blood culture negative. Urine culture pending. CD4 281 DIAGNOSTICS: Chest x-ray on admission revealed mild atelectasis at the lung bases and pulmonary edema. ANTIMICROBIALS: Patient is on: 1. Sustiva. 2. Truvada. 3. Bactrim-DS 1 tablet daily. 4. She is also on Biaxin. 5. Levaquin PHYSICAL EXAMINATION: GENERAL: This is a morbidly obese, middle-aged -[place] woman who is alert, in no distress. HEENT: Head atraumatic, normocephalic. Sclerae anicteric. Buccal mucosa dry. NECK: Supple. CHEST: Rise symmetrical. Breath sounds with bilateral rhonchi and expiratory wheezes. HEART: S1, S2. ABDOMEN: Soft. Bowel tones present. EXTREMITIES: No cyanosis. ASSESSMENT: 1. Acute bronchitis with chronic obstructive pulmonary disease exacerbation. 2. Acquired immune deficiency syndrome with CD4 281 3. Morbid obesity. 4. Hypoxemic respiratory failure. PLAN: Patient remains stable, dc Bactrim, continue BRAMBILA/abx, steroids/BD's, pulmonary rec-s DW staff Problems: Consultation Date/Type/Reason Admit Date/Time Sep 23, 2016 at 00:24 Initial Consult Date id Exam/Review of Systems Vital Signs Vitals Vital Signs Date Time Temp Pulse Resp B/P Pulse Ox O2 Delivery O2 Flow Rate FiO2 09/25/16 08:30 Nasal Cannula 3.0 09/25/16 08:27 74 09/25/16 08:24 22 95 09/25/16 07:22 98.1 147/69 09/24/16 20:50 21 Intake and Output 09/24/16 09/24/16 09/25/16 15:00 23:00 07:00 Intake Total 1300 ml 400 ml Balance 1300 ml 400 ml Results Result Diagram: 09/25/16 0710 09/25/16 0710 Results 24 hrs Laboratory Tests Test 09/25/16 07:10 Activated Partial Thromboplast Time 27.2 Anion Gap 14 Basophils # 0.1 Basophils % 0.5 Blood Urea Nitrogen 18 Calcium Level 9.2 Carbon Dioxide Level 33 H Chloride Level 97 Creatinine 0.71 Eosinophils # 0.0 Eosinophils % 0.0 Glucose Level 172 Hematocrit 35.5 L Hemoglobin 11.1 L INR International Normalized Ratio 1.04 Lymphocytes # 1.2 Lymphocytes % 9.7 L Mean Corpuscular Hemoglobin 26.9 L Mean Corpuscular Hemoglobin Concent 31.3 L Mean Corpuscular Volume 86.0 Mean Platelet Volume 11.7 H Monocytes # 0.6 Monocytes % 5.1 Neutrophils # 9.4 H Neutrophils % 77.3 H Nucleated Red Blood Cells # 0.0 Nucleated Red Blood Cells % 0.2 H Platelet Count 222 Potassium Level 3.9 Prothrombin Time 13.6 Prothrombin Time Ratio 1.1 Red Blood Count 4.13 L Red Cell Distribution Width 15.2 H Sodium Level 140 White Blood Count 12.2 H Medications Medications Current Medications Ondansetron HCl (Zofran Tab) 4 mg Q6H PRN PO NAUSEA AND/OR VOMITING; Start 09/23 at 02:30 Guaifenesin (Mucinex) 1,200 mg BID PO Last administered on 09/25/16 08:51; Admin Dose 1,200 MG; Start 09/23/16 at 09:30 Clarithromycin (Biaxin) 500 mg BID PO Last administered on 09/25/16 10:45; Admin Dose 500 MG; Start 09/23/16 at 09:30 Benazepril HCl (Lotensin) 20 mg DAILY NGT Last administered on 09/25/16 08:50 ; Admin Dose 20 MG; Start 09/23/16 at 09:00 Gabapentin (Neurontin) 800 mg HS PO Last administered on 09/24/16 22:36; Admin Dose 800 MG; Start 09/23/16 at 21:00 Loratadine (Claritin) 10 mg DAILY GTB Last administered on 09/25/16 08:50; Admin Dose 10 MG; Start 09/23/16 at 09:00 Diphenhydramine HCl (Benadryl) 50 mg HS PRN PO INSOMNIA Last administered on 22:43; Admin Dose 50 MG; Start 09/23/16 at 07:30 Ibuprofen (Motrin) 800 mg Q8 PRN PO PAIN Last administered on 09/23/16 13:28; Admin Dose 800 MG; Start 09/23/16 at 07:30 Acetaminophen (Tylenol Tab) 1,000 mg Q4H PRN PO PAIN AND OR ELEVATED TEMP Last administered on 09/23/16 08:42; Admin Dose 1,000 MG; Start 09/23/16 at 07:30 Enoxaparin Sodium (Lovenox) 30 mg DAILY SC Last administered on 09/24/16 08:53 ; Admin Dose 30 MG; Start 09/23/16 at 09:00 Methylprednisolone Sodium Succinate (Solu-Medrol) 60 mg Q6 IV Last administered on 09/25/16 12:07; Admin Dose 60 MG; Start 09/23/16 at 12:30 Efavirenz (Sustiva) 600 mg QHS PO Last administered on 09/24/16 22:41; Admin Dose 600 MG; Start 09/23/16 at 21:00 Emtricitabine/ Tenofovir (Truvada) 1 tab QHS PO Last administered on 09/24/16 22:36; Admin Dose 1 TAB; Start 09/23/16 at 21:00 Trimethoprim/ Sulfamethoxazole (Bactrim (Ds)) 1 tab DAILY PO Last administered on 09/25/16 08:51; Admin Dose 1 TAB; Start 09/23/16 at 18:00 Acetaminophen/ Hydrocodone Bitart ([place] (5/325)) 1 tab Q6H PRN PO PAIN LEVEL 6 -10 Last administered on 09/25/16 08:51; Admin Dose 1 TAB; Start 09/23/16 at 19: 00 Docusate Sodium (Colace) 200 mg BID PRN PO CONSTIPATION; Start 09/24/16 at 11:30 Levofloxacin (Levaquin) 500 mg DAILY@06 PO Last administered on 09/25/16 06:06 ; Admin Dose 500 MG; Start 09/25/16 at 06:00 EDUARD BRITO NP Sep 25, 2016 12:17
--- NOTE | 2016-09-25 14:05 | PN ---
DATE: PULMONARY FOLLOWUP NOTE REASON FOR FOLLOWUP: Respiratory distress. PHYSICAL EXAMINATION: VITAL SIGNS: The patient remains stable this morning. Temperature 98, pulse is 100, blood pressure 140/60, O2 saturation 96% on 2 L nasal cannula. NECK: Supple. No JVD or lymphadenopathy. CARDIAC EXAM: S1, S2. No added sounds or murmurs. CHEST: Diminished air entry bilaterally. ABDOMEN: Soft, nontender. No guarding or rebound. EXTREMITIES: No cyanosis, clubbing or edema. NEUROLOGIC: Generalized weakness. LABORATORY: White count 12.2, hemoglobin 11.1, platelets of 222. Chemistry within normal limits. IMPRESSION AND PLAN: 1. Resolving chronic obstructive pulmonary disease exacerbation. 2. Human immunodeficiency virus, with low CD4 count. PLAN 1. Discharge home. 2. Bronchodilators. 3. Follow up with ID. 4. Deep venous thrombosis and gastrointestinal prophylaxis. Dictated By: NICK DELONG/JASS Conf#: [id number] DID#: [id number]
[2016-09-25] MEDS: GABAPENTIN 400 MG CAP PO SCH (21:00)
[2016-09-25] MEDS: EMTRICITABINE/TENOFOVIR TAB PO SCH (21:00)
[2016-09-25] MEDS: EFAVIRENZ 600 MG TAB PO SCH (21:00)
[2016-09-25] MEDS: DIPHENHYDRAMINE 50 MG CAP PO PRN (22:48)
[2016-09-26] MEDS: METHYLPREDNISOLONE 125 MG INJ IV SCH ×2 (05:08→11:13)
[2016-09-26] MEDS: LEVOFLOXACIN 500 MG TAB PO SCH (05:08)
[2016-09-26 08:15] VITALS: BP 181/87; RESP 20
[2016-09-26] MEDS: ALBUTEROL/IPRATROPIUM (NEB) 3 ML AMP HHN SCH ×2 (09:00→12:06)
[2016-09-26] MEDS: ENOXAPARIN 30 MG/0.3 ML SYG SC SCH (09:00)
[2016-09-26] MEDS: HYDROCODONE/APAP (5/325) TAB PO PRN (09:11)
[2016-09-26] MEDS: GUAIFENESIN LA 600 MG TABSR PO SCH (09:11)
[2016-09-26] MEDS: LORATADINE 10 MG TAB GTB SCH (09:11)
[2016-09-26] MEDS: CLARITHROMYCIN 500 MG TAB PO SCH (09:11)
[2016-09-26] MEDS: BENAZEPRIL 20 MG TAB NGT SCH (09:12)
--- NOTE | 2016-09-26 12:02 | PN ---
Date/Time of Note Date/Time of Note DATE: 09/26/16 TIME: 12:01 Assessment/Plan VTE Prophylaxis VTE Prophylaxis Intervention: SCD's Lines/Catheters IV Catheter Type (from [facility]): Saline Lock Urinary Cath still in place: No Assessment/Plan Assessment/Plan 1) COPD Exacerbation - DuoNeb QID - Albuterol Neb Q 2 hours prn - Prednisone daily - 5 days of steroids total, starting 09/22/16 unless taper is indicated at discharge - Biaxin 500 mg BID - Guaifenecin LA 1200 mg BID pulmonary is also following 2) HIV - s/p ID consult, started on HIV meds d/c plan today Subjective 24 Hr Interval Summary Free Text/Dictation doing ok, BP stble, afebrile Exam/Review of Systems Vital Signs Vitals Vital Signs Date Time Temp Pulse Resp B/P Pulse Ox O2 Delivery O2 Flow Rate FiO2 09/26/16 08:15 97.8 74 20 181/87 93 09/26/16 00:59 21 09/25/16 17:04 Nasal Cannula 3.0 Intake and Output 09/25/16 09/25/16 09/26/16 15:00 23:00 07:00 Intake Total 700 ml Balance 700 ml Results Result Diagram: 09/25/16 0710 09/25/16 0710 Medications Medications Current Medications Ondansetron HCl (Zofran Tab) 4 mg Q6H PRN PO NAUSEA AND/OR VOMITING; Start 09/23 at 02:30 Guaifenesin (Mucinex) 1,200 mg BID PO Last administered on 09/26/16 09:11; Admin Dose 1,200 MG; Start 09/23/16 at 09:30 Clarithromycin (Biaxin) 500 mg BID PO Last administered on 09/26/16 09:11; Admin Dose 500 MG; Start 09/23/16 at 09:30 Benazepril HCl (Lotensin) 20 mg DAILY NGT Last administered on 09/26/16 09:12 ; Admin Dose 20 MG; Start 09/23/16 at 09:00 Gabapentin (Neurontin) 800 mg HS PO Last administered on 09/24/16 22:36; Admin Dose 800 MG; Start 09/23/16 at 21:00 Loratadine (Claritin) 10 mg DAILY GTB Last administered on 09/26/16 09:11; Admin Dose 10 MG; Start 09/23/16 at 09:00 Diphenhydramine HCl (Benadryl) 50 mg HS PRN PO INSOMNIA Last administered on 22:48; Admin Dose 50 MG; Start 09/23/16 at 07:30 Ibuprofen (Motrin) 800 mg Q8 PRN PO PAIN Last administered on 09/23/16 13:28; Admin Dose 800 MG; Start 09/23/16 at 07:30 Acetaminophen (Tylenol Tab) 1,000 mg Q4H PRN PO PAIN AND OR ELEVATED TEMP Last administered on 09/23/16 08:42; Admin Dose 1,000 MG; Start 09/23/16 at 07:30 Enoxaparin Sodium (Lovenox) 30 mg DAILY SC Last administered on 09/24/16 08:53 ; Admin Dose 30 MG; Start 09/23/16 at 09:00 Methylprednisolone Sodium Succinate (Solu-Medrol) 60 mg Q6 IV Last administered on 09/26/16 11:13; Admin Dose 60 MG; Start 09/23/16 at 12:30 Efavirenz (Sustiva) 600 mg QHS PO Last administered on 09/24/16 22:41; Admin Dose 600 MG; Start 09/23/16 at 21:00 Emtricitabine/ Tenofovir (Truvada) 1 tab QHS PO Last administered on 09/24/16 22:36; Admin Dose 1 TAB; Start 09/23/16 at 21:00 Acetaminophen/ Hydrocodone Bitart ([place] (5/325)) 1 tab Q6H PRN PO PAIN LEVEL 6 -10 Last administered on 09/26/16 09:11; Admin Dose 1 TAB; Start 09/23/16 at 19: 00 Docusate Sodium (Colace) 200 mg BID PRN PO CONSTIPATION; Start 09/24/16 at 11:30 Levofloxacin (Levaquin) 500 mg DAILY@06 PO Last administered on 09/25/16 06:06 ; Admin Dose 500 MG; Start 09/25/16 at 06:00 Clonidine (Catapres) 0.1 mg Q6H PRN PO BP greater than 160 Last administered on 09/25/16 18:21; Admin Dose 0.1 MG; Start 09/25/16 at 18:30 JAKY KNOTT MD Sep 26, 2016 12:02
--- NOTE | 2016-09-26 12:03 | PDOCDIS ---
Discharge Instructions CONDITION Patient Condition: Good HOME CARE INSTRUCTIONS: Special Diet: Regular ACTIVITY: Activity Restrictions: Slowly Increase Activity Rest between Activity Avoid heavy lifting FOLLOW UP/APPOINTMENTS Appointments follow up with her own PMD though O insurance in 1-2 week after discharge JAKY KNOTT MD Sep 26, 2016 12:03
[2016-09-26] MEDS ORDERED: HYDR-3498 PO (12:05)
[2016-09-26] MEDS ORDERED: CLAR500T39 PO (12:05)
[2016-09-26] MEDS ORDERED: LEVO500T10 PO (12:05)
--- NOTE | 2016-09-27 23:13 | DS ---
DATE OF ADMISSION: 09/23/2016 DATE OF DISCHARGE: 09/26/2016 FINAL DISCHARGE DIAGNOSES: 1. Acute chronic obstructive pulmonary disease exacerbation causing hypoxic respiratory distress. 2. History of human immunodeficiency virus. CONSULTATIONS DONE DURING THIS HOSPITALIZATION: Infectious disease consult. PROCEDURES PERFORMED DURING THIS HOSPITALIZATION: None. HOSPITAL COURSE: This is a 51-year-old female with a past medical history of COPD, history of HIV w ho presented with a complaint of shortness of breath. The patient was admitted because of hypoxic r espiratory distress secondary to acute COPD exacerbation. She was started on IV Solu-Medrol and IV antibiotics. She was evaluated by pulmonary and also by infectious disease service. She remained h emodynamically stable. She was started on some of the medication for which she was discharged home with. Next, after getting stable vital signs and clearance from pulmonary and infectious disease se rvice, she is being discharged to home. DISPOSITION: To home. DISCHARGE CONDITION: Stable and improved compared to admission. DISCHARGE ACTIVITIES: As tolerated, slowly resume to the normal baseline activity. DISCHARGE DIET: Regular diet. DISCHARGE FOLLOWUP INSTRUCTIONS: 1. The patient is to follow up with her own primary care doctor through her HMO insurance 1 to 2 we eks after discharge. 2. The patient is to follow up with infectious disease service as outpatient. 3. She has been explained about the discharge plan and followup instructions. She understood and v erbalized understanding. Total amount of time spent in this patient's discharge summary is 30 minutes. Dictated By: JAKY KNOTT MD, KP/NTS Conf#: [id number] DID#: [id number] CC: RICHAR MENJIVAR MD;*End*
== END 2016-09-26 12:30 | disposition home or self-care (01) | DRG 189 ==
LOC: MS4 09-23 00:24 → PP2 09-25 19:00
PROVIDERS: ADMIT Family Medicine; ATTEND Family Medicine
DX: J96.01 Acute respiratory failure with hypoxia (principal); B20 Human immunodeficiency virus [HIV] disease; J44.1 Chronic obstructive pulmonary disease with (acute) exacerbation; J44.0 Chronic obstructive pulmonary disease with (acute) lower respiratory infection; J20.9 Acute bronchitis, unspecified; F17.210 Nicotine dependence, cigarettes, uncomplicated; G47.33 Obstructive sleep apnea (adult) (pediatric)
CPT/HCPCS: 71010; 80048; 80053; 80061; 80307; 81003; 83036; 83735; 84100; 84439; 84443; 84703; 85025; 85610; 85730; 86360; 87040; 87070; 87086; 94640; 94664; 97162; J1650; J2930; J7512

== ENCOUNTER 2017-08-31 12:59 | Inpatient (IN) | END 2017-09-04 10:50 | disposition home or self-care (01) | DRG 975 ==

== ENCOUNTER 2018-11-21 17:51 | Inpatient (IN) | payer OTHER ==
[~2018-11-21] VITALS: Ht 177.8 cm; Wt 105.2 kg
[~2018-11-21 17:51] MED LIST: ALBU18HF INHALATION; AMIT50TA3 PO; AMOX500C2 PO; BENA40TA56 PO; ELVI1TAB3 PO; GUAI600T23 PO; HYDR25TA6 PO; LEVO750T25 PO; MOME13HF2 INHALATION; Nicotine (14 Mg/24 Hr) TRANSDERM; OXYM15SP34 NASAL; PRED20TA PO; TIOT18CA INHALATION; TOPI25CA2 PO
[2018-11-21 20:38] VITALS: Ht 177.8 cm; Wt 105.2 kg
[2018-11-21 20:39] VITALS: BP 117/70; PULSE 91; RESP 18
[2018-11-21] MEDS ORDERED: ATOR20TA38 PO (20:47)
[2018-11-21] MEDS ORDERED: KETOROLAC 30 MG INJ IV STA (21:27)
--- NOTE | 2018-11-21 23:57 | HP ---
Date/Time of Note Date/Time of Note DATE: 11/21/18 TIME: 23:57 Assessment/Plan VTE Prophylaxis Pharmacological prophylaxis: heparin Lines/Catheters IV Catheter Type (from Nrs): Saline Lock Assessment/Plan Assessment/Plan 1. Diverticulitis -Keep n.p.o. with IV fluid -IV antibiotic 2. Hypertension: BP within goal 3. COPD: No sign of acute exacerbation 4. History of HIV: Check CD4 and viral load -cont home med HPI/ROS Admit Date/Time Admit Date/Time November 21, 2018 at 20:18 Hx of Present Illness Patient is a 53-year-old female with a history of hypertension, COPD, HIV who initially presented to [facility] complaining of abdominal pain and diarrhea. She was diagnosed with diverticulitis in the transferred to [facility] for insurance reason. She was afebrile with normal WBC. PMH/Family/Social Past Medical History Past Surgical Hx: other (HPI) Family History Significant Family History: no pertinent family hx Social History Alcohol Use: none Smoking Status: Never smoker Drug Use: none Exam Constitutional: alert, oriented, well developed Head: normocephalic, atraumatic Eyes: EOMI, PERRL Respiratory: clear to auscultation, normal air movement Cardiovascular: regular rate and rhythm, nl pulses Gastrointestinal: soft, other (Right lower quadrant tenderness elicited on palpation. Patient also with right flank pain) Extremities: normal pulses Coded Allergies: No Known Drug Allergies (Verified Allergy, Unknown, 11/21/18) Family History Significant Family History: no pertinent family hx Social History Smoking Status: Never smoker Exam/Review of Systems Vital Signs Vitals Vital Signs Date Temp Pulse Resp B/P (MAP) Pulse Ox O2 O2 Flow FiO2 Time Delivery Rate 11/21/18 Nasal 2.0 20:54 Cannula 11/21/18 98.4 91 18 117/70 97 20:39 (86) PARVEZ MCINTOSH MD November 21, 2018 23:57
[2018-11-22] MEDS ORDERED: NACL 0.9% 3 ML SYG IV SCH
[2018-11-22] MEDS: DEXTROSE 5%-0.45% NACL 1,000 ML IV SCH ×5 (00:26→21:27)
[2018-11-22] MEDS: PIPER-TAZO 3.375 GM IV (PMX) 100 ML IVPB SCH ×5 (00:27→23:25)
[2018-11-22 01:39] VITALS: BP 125/61; PULSE 75; RESP 18
[2018-11-22] MEDS: morphine 2 MG INJ IV PRN ×4 (05:32→21:27)
[2018-11-22 07:37] VITALS: BP 122/74; PULSE 79; RESP 18
[2018-11-22] MEDS ORDERED: ALBUTEROL/IPRATROPIUM (NEB) 3 ML AMP HHN PRN (13:30)
[2018-11-22] MEDS: TIOTROPIUM 18 MCG CAPSULE INHA DEV INH SCH (15:09)
--- NOTE | 2018-11-22 15:30 | PN ---
Date/Time of Note Date/Time of Note DATE: 11/22/18 TIME: 15:26 Assessment/Plan VTE [place]phylaxis [place] [facility]: 2 [place] [facility] Yes Pharmacological prophylaxis: other Pharm contraindication: other Lines/Catheters [facility] Peripheral IV Urinary Cath still in place: No Assessment/Plan Assessment/Plan 1. Acute colonic diverticulitis, microperforation, IVF, antibiotics, try clear liquid diet, pain control 2. Hypertension: BP within goal 3. COPD: No sign of acute exacerbation 4. History of HIV: 5. Normocytic anemia, follow up with H/H Result Diagram: 11/22/1843811/22/18438 Results 24hrs Laboratory Tests Test 11/22/18 04:39 White Blood Count 7.2 # Red Blood Count 3.75 #L Hemoglobin 10.2 L Hematocrit 32.5 L Mean Corpuscular Volume 86.7 Mean Corpuscular Hemoglobin 27.2 L Mean Corpuscular Hemoglobin Concent 31.4 L Red Cell Distribution Width 13.1 Platelet Count 213 Mean Platelet Volume 10.8 H Immature Granulocytes % 0.800 H Neutrophils % 63.4 Lymphocytes % 23.1 Monocytes % 11.6 H Eosinophils % 0.8 Basophils % 0.3 Nucleated Red Blood Cells % 0.0 Immature Granulocytes # 0.060 H Neutrophils # 4.6 Lymphocytes # 1.7 Monocytes # 0.8 Eosinophils # 0.1 Basophils # 0.0 Nucleated Red Blood Cells # 0.0 Sodium Level 139 Potassium Level 3.6 Chloride Level 103 Carbon Dioxide Level 28 Anion Gap 8 Blood Urea Nitrogen 15 Creatinine 0.91 Est Glomerular Filtrat Rate mL/min > 60 Glucose Level 108 Calcium Level 9.1 Phosphorus Level 4.2 Magnesium Level 1.7 Total Bilirubin 0.4 Direct Bilirubin 0.00 Indirect Bilirubin 0.4 Aspartate Amino Transf (AST/SGOT) 31 Alanine Aminotransferase (ALT/SGPT) 20 Alkaline Phosphatase 83 Total Protein 6.4 Albumin 3.7 Globulin 2.70 Albumin/Globulin Ratio 1.37 Subjective 24 Hr Interval Summary Free Text/Dictation abdominal pain controlled with morphine, no nausea or vomiting. asks for food Exam/Review of Systems Exam Vitals Vital Signs Date Temp Pulse Resp B/P (MAP) Pulse Ox O2 O2 Flow FiO2 Time Delivery Rate 11/22/18 98.8 79 18 122/74 95 07:37 (90) 11/21/18 Nasal 2.0 20:54 Cannula Intake and Output 11/21/18 11/21/18 11/22/18 1515:00 23:00 07:00 IntakeIntake Total 800 ml BalanceBalance 800 ml Constitutional: alert, oriented, well developed, obese Psych: no complaints, nl mood/affect Head: normocephalic, atraumatic Eyes: nl conjunctiva, EOMI, nl lids, nl sclera ENMT: nl external ears & nose, nl lips & teeth, nl nasal mucosa & septum Neck: supple, non-tender Respiratory: clear to auscultation, normal air movement; No congested cough, No crackles/rales, No diminished breath sounds, No intercostal retraction, No labored breathing, No respirations, No tactile fremitus, No wheezing, No other Cardiovascular: regular rate and rhythm, nl pulses; No bruits, No diastolic murmur, No edema, No gallop, No irregular rhythm, No jugular venous distention (JVD), No murmurs/extra sounds, No rub, No systolic murmur, No S3, No S4, No other Gastrointestinal: soft, nl liver, spleen, non-tender (just got morphine) Musculoskeletal: nl extremities to inspection Extremities: normal pulses; No calf tenderness, No cyanosis, No clubbing, No edema, No pitting pedal edema, No palpable cord, No tenderness, No other 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, nl mental status, nl speech Results Results 24hrs Laboratory Tests Test 11/22/18 04:39 White Blood Count 7.2 # Red Blood Count 3.75 #L Hemoglobin 10.2 L Hematocrit 32.5 L Mean Corpuscular Volume 86.7 Mean Corpuscular Hemoglobin 27.2 L Mean Corpuscular Hemoglobin Concent 31.4 L Red Cell Distribution Width 13.1 Platelet Count 213 Mean Platelet Volume 10.8 H Immature Granulocytes % 0.800 H Neutrophils % 63.4 Lymphocytes % 23.1 Monocytes % 11.6 H Eosinophils % 0.8 Basophils % 0.3 Nucleated Red Blood Cells % 0.0 Immature Granulocytes # 0.060 H Neutrophils # 4.6 Lymphocytes # 1.7 Monocytes # 0.8 Eosinophils # 0.1 Basophils # 0.0 Nucleated Red Blood Cells # 0.0 Sodium Level 139 Potassium Level 3.6 Chloride Level 103 Carbon Dioxide Level 28 Anion Gap 8 Blood Urea Nitrogen 15 Creatinine 0.91 Est Glomerular Filtrat Rate mL/min > 60 Glucose Level 108 Calcium Level 9.1 Phosphorus Level 4.2 Magnesium Level 1.7 Total Bilirubin 0.4 Direct Bilirubin 0.00 Indirect Bilirubin 0.4 Aspartate Amino Transf (AST/SGOT) 31 Alanine Aminotransferase (ALT/SGPT) 20 Alkaline Phosphatase 83 Total Protein 6.4 Albumin 3.7 Globulin 2.70 Albumin/Globulin Ratio 1.37 Medications Medication Current Medications Dextrose/Sodium Chloride 1,000 ml @ 100 mls/hr Q10H IV Last administered on 11/22/18at 11:21; Admin Dose 100 MLS/HR; Start 11/21/18 at 23:57; Stop 11/24/18 at 23:56 IV Flush (NS 3 ml) 3 ml PER PROTOCOL IV ; Start 11/22/18 at 00:00 Ondansetron HCl (Zofran Inj) 4 mg Q6H PRN IV NAUSEA/VOMITING; Start 11/22/18 at 00:00 Morphine Sulfate (morphine) 2 mg Q4H PRN IV .SEVERE PAIN 7-10 Last administered on 11/22/18at 15:15; Admin Dose 2 MG; Start 11/22/18 at 00:00 Piperacillin Sod/ Tazobactam Sod 100 ml @ 200 mls/hr Q6 IVPB Last administered on 11/22/18at 11:12; Admin Dose 200 MLS/HR; Start 11/22/18 at 00:00 Elvitegravir/ Cobicis/Emtricit/ Tenof (Genvoya Tablet) 1 each DAILY PO ; Start 11/22/18 at 13:30 Tiotropium Lanexa (Spiriva) 1 inh DAILY INH Last administered on 11/22/18at 15:09; Admin Dose 1 INH; Start 11/22/18 at 13:30 Fluticasone/ Vilanterol (Breo Ellipta 100-25 Mcg Inh) 1 inh DAILY INH ; Start 11/23/18 at 09:00 Albuterol/ Ipratropium (Duoneb) 3 ml Q4H RESP THERAPY PRN HHN SHORTNESS OF BREATH; Start 11/22/18 at 13:30 MARQUISE ESPITIA MD November 22, 2018 15:30
[2018-11-22 15:41] VITALS: BP 123/65; PULSE 87; RESP 20
[2018-11-22] MEDS: ACETAMINOPHEN 325 MG TAB PO PRN ×2 (16:08→21:27)
[2018-11-22] MEDS: ELVITEG/COBI/EMTRIC/TENOFO ALA 1 EACH TABLET PO SCH (18:38)
[2018-11-22 19:39] VITALS: BP 119/59; PULSE 84; RESP 18
[2018-11-23] MEDS: GUAIFENESIN/CODEINE 5ML CUP PO PRN ×3 (01:08→18:16)
[2018-11-23 01:12] VITALS: BP 135/88; PULSE 75; RESP 18
[2018-11-23] MEDS: PIPER-TAZO 3.375 GM IV (PMX) 100 ML IVPB SCH ×3 (05:31→18:07)
[2018-11-23] MEDS: morphine 2 MG INJ IV PRN (06:40)
[2018-11-23 07:46] VITALS: BP 141/75; PULSE 81; RESP 18
[2018-11-23] MEDS: DEXTROSE 5%-0.45% NACL 1,000 ML IV SCH ×2 (09:02→20:41)
[2018-11-23] MEDS: ELVITEG/COBI/EMTRIC/TENOFO ALA 1 EACH TABLET PO SCH (12:32)
[2018-11-23] MEDS: FLUTICASONE/VILANTEROL 100-25 INH SCH (12:33)
[2018-11-23] MEDS: TIOTROPIUM 18 MCG CAPSULE INHA DEV INH SCH (12:33)
[2018-11-23 14:50] VITALS: BP 139/81; PULSE 86; RESP 17
--- NOTE | 2018-11-23 17:13 | PN ---
Date/Time of Note Date/Time of Note DATE: 11/23/18 TIME: 17:08 Assessment/Plan VTE Prophylaxis Risk score (from [facility] [place])>0 risk: 2 SCD applied (from [facility] [place]): Yes Pharmacological prophylaxis: other Pharm contraindication: other Lines/Catheters IV Catheter Type (from [facility]): Peripheral IV Urinary Cath still in place: No Assessment/Plan Assessment/Plan 1. Acute colonic diverticulitis, microperforation, IVF, antibiotics, pain control, advance diet 2. Hypertension, controlled 3. COPD: No sign of acute exacerbation 4. History of HIV: 5. Normocytic anemia, follow up with H/H Result Diagram: 11/23/18 0432 11/23/18 0432 Results 24hrs Laboratory Tests Test 11/23/18 04:32 White Blood Count 8.1 Red Blood Count 3.83 L Hemoglobin 10.5 L Hematocrit 32.9 L Mean Corpuscular Volume 85.9 Mean Corpuscular Hemoglobin 27.4 L Mean Corpuscular Hemoglobin Concent 31.9 L Red Cell Distribution Width 13.2 Platelet Count 204 Mean Platelet Volume 11.1 H Immature Granulocytes % 0.600 H Neutrophils % 69.0 Lymphocytes % 18.2 Monocytes % 11.3 H Eosinophils % 0.5 Basophils % 0.4 Nucleated Red Blood Cells % 0.0 Immature Granulocytes # 0.050 H Neutrophils # 5.6 Lymphocytes # 1.5 Monocytes # 0.9 Eosinophils # 0.0 Basophils # 0.0 Nucleated Red Blood Cells # 0.0 Sodium Level 141 Potassium Level 3.5 Chloride Level 106 Carbon Dioxide Level 28 Anion Gap 7 Blood Urea Nitrogen 5 #L Creatinine 0.69 Est Glomerular Filtrat Rate mL/min > 60 Glucose Level 116 Calcium Level 8.9 Magnesium Level 1.9 Subjective 24 Hr Interval Summary Free Text/Dictation no abdominal pain, tolerates liquid diet Exam/Review of Systems Exam Vitals Vital Signs Date Temp Pulse Resp B/P (MAP) Pulse Ox O2 O2 Flow FiO2 Time Delivery Rate 11/23/18 99.6 86 17 139/81 96 Nasal 14:50 (100) Cannula 11/23/18 2.0 08:40 11/22/18 21 15:45 Intake and Output 11/22/18 11/22/18 11/23/18 1515:00 23:00 07:00 IntakeIntake Total 500 ml 1660 ml 900 ml BalanceBalance 500 ml 1660 ml 900 ml Constitutional: alert, oriented, well developed Psych: no complaints, nl mood/affect Head: normocephalic, atraumatic Eyes: nl conjunctiva, EOMI, nl lids ENMT: nl external ears & nose, nl lips & teeth, nl nasal mucosa & septum Neck: supple, non-tender Respiratory: clear to auscultation, normal air movement; No congested cough, No crackles/rales, No diminished breath sounds, No intercostal retraction, No labored breathing, No respirations, No tactile fremitus, No wheezing, No other Cardiovascular: regular rate and rhythm, nl pulses; No bruits, No diastolic murmur, No edema, No gallop, No irregular rhythm, No jugular venous distention (JVD), No murmurs/extra sounds, No rub, No systolic murmur, No S3, No S4, No other Gastrointestinal: soft, nl liver, spleen Musculoskeletal: nl extremities to inspection Extremities: normal pulses; No calf tenderness, No cyanosis, No clubbing, No edema, No pitting pedal edema, No palpable cord, No tenderness, No other 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, nl mental status, nl speech, nl strength Results Results 24hrs Laboratory Tests Test 11/23/18 04:32 White Blood Count 8.1 Red Blood Count 3.83 L Hemoglobin 10.5 L Hematocrit 32.9 L Mean Corpuscular Volume 85.9 Mean Corpuscular Hemoglobin 27.4 L Mean Corpuscular Hemoglobin Concent 31.9 L Red Cell Distribution Width 13.2 Platelet Count 204 Mean Platelet Volume 11.1 H Immature Granulocytes % 0.600 H Neutrophils % 69.0 Lymphocytes % 18.2 Monocytes % 11.3 H Eosinophils % 0.5 Basophils % 0.4 Nucleated Red Blood Cells % 0.0 Immature Granulocytes # 0.050 H Neutrophils # 5.6 Lymphocytes # 1.5 Monocytes # 0.9 Eosinophils # 0.0 Basophils # 0.0 Nucleated Red Blood Cells # 0.0 Sodium Level 141 Potassium Level 3.5 Chloride Level 106 Carbon Dioxide Level 28 Anion Gap 7 Blood Urea Nitrogen 5 #L Creatinine 0.69 Est Glomerular Filtrat Rate mL/min > 60 Glucose Level 116 Calcium Level 8.9 Magnesium Level 1.9 Medications Medication Current Medications Dextrose/Sodium Chloride 1,000 ml @ 100 mls/hr Q10H IV Last administered on 11/23/18 09:02; Admin Dose 100 MLS/HR; Start 11/21/18 at 23:57; Stop 11/24/18 at 23:56 IV Flush (NS 3 ml) 3 ml PER PROTOCOL IV ; Start 11/22/18 at 00:00 Ondansetron HCl (Zofran Inj) 4 mg Q6H PRN IV NAUSEA/VOMITING; Start 11/22/18 at 00:00 Morphine Sulfate (morphine) 2 mg Q4H PRN IV .SEVERE PAIN 7-10 Last administered on 11/23/18 06:40; Admin Dose 2 MG; Start 11/22/18 at 00:00 Piperacillin Sod/ Tazobactam Sod 100 ml @ 200 mls/hr Q6 IVPB Last administered on 11/23/18 12:31; Admin Dose 200 MLS/HR; Start 11/22/18 at 00:00 Elvitegravir/ Cobicis/Emtricit/ Tenof (Genvoya Tablet) 1 each DAILY PO Last administered on 11/23/18 12:32; Admin Dose 1 EACH; Start 11/22/18 at 13:30 Tiotropium [place] (Spiriva) 1 inh DAILY INH Last administered on 11/23/18 12:33; Admin Dose 1 INH; Start 11/22/18 at 13:30 Fluticasone/ Vilanterol (Breo Ellipta 100-25 Mcg Inh) 1 inh DAILY INH Last administered on 11/23/18 12:33; Admin Dose 1 INH; Start 11/23/18 at 09:00 Albuterol/ Ipratropium (Duoneb) 3 ml Q4H RESP THERAPY PRN HHN SHORTNESS OF BREATH Last administered on 11/22/18 15:34; Admin Dose 3 ML; Start 11/22/18 at 13:30 Acetaminophen (Tylenol Tab) 650 mg Q6H PRN PO MILD PAIN(1-3)OR ELEVATED TEMP Last administered on 11/22/18 21:27; Admin Dose 650 MG; Start 11/22/18 at 16:00 Guaifenesin/ Codeine Phosphate (Robitussin Ac Liquid Cup) 10 ml Q4H PRN PO COUGH Last administered on 11/23/18 09:08; Admin Dose 10 ML; Start 11/23/18 at 01:00 MARQUISE ESPITIA MD November 23, 2018 17:13
[2018-11-23 20:01] VITALS: BP 151/70; PULSE 88; RESP 18
[2018-11-23] MEDS: ACETAMINOPHEN 325 MG TAB PO PRN (20:31)
[2018-11-23] MEDS: ONDANSETRON 4 MG INJ IV PRN (20:41)
[2018-11-24] MEDS: PIPER-TAZO 3.375 GM IV (PMX) 100 ML IVPB SCH ×4 (00:31→18:12)
[2018-11-24 03:15] VITALS: BP 145/73; PULSE 68; RESP 18
[2018-11-24] MEDS: ACETAMINOPHEN 325 MG TAB PO PRN ×2 (05:54→22:11)
[2018-11-24] MEDS: GUAIFENESIN/CODEINE 5ML CUP PO PRN ×2 (05:55→18:13)
[2018-11-24 08:13] VITALS: BP 140/83; PULSE 68; RESP 18
[2018-11-24] MEDS: FLUTICASONE/VILANTEROL 100-25 INH SCH (08:21)
[2018-11-24] MEDS: DEXTROSE 5%-0.45% NACL 1,000 ML IV SCH ×2 (08:21→22:39)
[2018-11-24] MEDS: TIOTROPIUM 18 MCG CAPSULE INHA DEV INH SCH (08:21)
[2018-11-24] MEDS: ELVITEG/COBI/EMTRIC/TENOFO ALA 1 EACH TABLET PO SCH (08:22)
[2018-11-24 14:38] VITALS: BP 140/83; PULSE 77; RESP 18
[2018-11-24] MEDS ORDERED: POTASSIUM CHLORIDE (SR) 20 MEQ TAB PO STA (16:17)
--- NOTE | 2018-11-24 16:17 | PN ---
Date/Time of Note Date/Time of Note DATE: 11/24/18 TIME: 16:15 Assessment/Plan VTE Prophylaxis Risk score (from [facility] [place])>0 risk: 1 SCD applied (from [facility] [place]): Yes Pharmacological prophylaxis: other Pharm contraindication: other Lines/Catheters IV C[facility]ter Type (from [facility] Peripheral IV Urinary Cath still in place: No Assessment/Plan Assessment/Plan 1. Acute colonic diverticulitis, microperforation, IVF, antibiotics, pain control, advance diet 2. Hypertension, controlled 3. COPD: No sign of acute exacerbation 4. History of HIV: 5. Normocytic anemia, follow up with H/H 6. D/C planning for tomorrow, needs colonoscopy in 6 weeks Result Diagram: 11/24/1844711/24/18447 Results 24hrs Laboratory Tests Test 11/24/18 04:48 White Blood Count 8.4 Red Blood Count 3.71 L Hemoglobin 10.2 L Hematocrit 32.1 L Mean Corpuscular Volume 86.5 Mean Corpuscular Hemoglobin 27.5 L Mean Corpuscular Hemoglobin Concent 31.8 L Red Cell Distribution Width 12.9 Platelet Count 206 Mean Platelet Volume 10.7 H Immature Granulocytes % 0.800 H Neutrophils % 68.4 Lymphocytes % 20.3 Monocytes % 9.8 Eosinophils % 0.5 Basophils % 0.2 Nucleated Red Blood Cells % 0.0 Immature Granulocytes # 0.070 H Neutrophils # 5.7 Lymphocytes # 1.7 Monocytes # 0.8 Eosinophils # 0.0 Basophils # 0.0 Nucleated Red Blood Cells # 0.0 Sodium Level 143 Potassium Level 3.4 L Chloride Level 107 Carbon Dioxide Level 31 Anion Gap 5 Blood Urea Nitrogen 2 L Creatinine 0.60 Est Glomerular Filtrat Rate mL/min > 60 Glucose Level 125 Calcium Level 9.1 Subjective 24 Hr Interval Summary Free Text/Dictation minimal pain, no nausea or vomiting, no fever or chills Exam/Review of Systems Exam Vitals Vital Signs Date Temp Pulse Resp B/P (MAP) Pulse Ox O2 O2 Flow FiO2 Time Delivery Rate 11/24/18 99.2 77 18 140/83 96 Room Air 14:38 (102) 11/23/18 2.0 20:00 11/22/18 21 15:45 Intake and Output 11/23/18 11/23/18 11/24/18 1515:00 23:00 07:00 IntakeIntake Total 880 ml 340 ml 200 ml BalanceBalance 880 ml 340 ml 200 ml Constitutional: alert, oriented, well developed Psych: no complaints, nl mood/affect Head: normocephalic, atraumatic Eyes: nl conjunctiva, EOMI, nl lids ENMT: nl external ears & nose, nl lips & teeth, nl nasal mucosa & septum Neck: supple Respiratory: clear to auscultation, normal air movement; No congested cough, No crackles/rales, No diminished breath sounds, No intercostal retraction, No labored breathing, No respirations, No tactile fremitus, No wheezing, No other Cardiovascular: regular rate and rhythm, nl pulses; No bruits, No diastolic murmur, No edema, No gallop, No irregular rhythm, No jugular venous distention (JVD), No murmurs/extra sounds, No rub, No systolic murmur, No S3, No S4, No other Gastrointestinal: soft, nl liver, spleen, other (mild LLQ tenderness) Musculoskeletal: nl extremities to inspection Extremities: normal pulses; No calf tenderness, No cyanosis, No clubbing, No edema, No pitting pedal edema, No palpable cord, No tenderness, No other Neurological: RESEARCH MANAGER II-XII intact, nl mental status, nl speech, nl strength Results Results 24hrs Laboratory Tests Test 11/24/18 04:48 White Blood Count 8.4 Red Blood Count 3.71 L Hemoglobin 10.2 L Hematocrit 32.1 L Mean Corpuscular Volume 86.5 Mean Corpuscular Hemoglobin 27.5 L Mean Corpuscular Hemoglobin Concent 31.8 L Red Cell Distribution Width 12.9 Platelet Count 206 Mean Platelet Volume 10.7 H Immature Granulocytes % 0.800 H Neutrophils % 68.4 Lymphocytes % 20.3 Monocytes % 9.8 Eosinophils % 0.5 Basophils % 0.2 Nucleated Red Blood Cells % 0.0 Immature Granulocytes # 0.070 H Neutrophils # 5.7 Lymphocytes # 1.7 Monocytes # 0.8 Eosinophils # 0.0 Basophils # 0.0 Nucleated Red Blood Cells # 0.0 Sodium Level 143 Potassium Level 3.4 L Chloride Level 107 Carbon Dioxide Level 31 Anion Gap 5 Blood Urea Nitrogen 2 L Creatinine 0.60 Est Glomerular Filtrat Rate mL/min > 60 Glucose Level 125 Calcium Level 9.1 Medications Medication Current Medications Dextrose/Sodium Chloride 1,000 ml @ 100 mls/hr Q10H IV Last administered on 11/24/18 08:21; Admin Dose 100 MLS/HR; Start 11/21/18 at 23:57; Stop 11/24/18 at 23:56 IV Flush (NS 3 ml) 3 ml PER PROTOCOL IV ; Start 11/22/18 at 00:00 Ondansetron HCl (Zofran Inj) 4 mg Q6H PRN IV NAUSEA/VOMITING Last administered on 11/23/18 20:41; Admin Dose 4 MG; Start 11/22/18 at 00:00 Morphine Sulfate (morphine) 2 mg Q4H PRN IV .SEVERE PAIN 7-10 Last administered on 11/23/18 06:40; Admin Dose 2 MG; Start 11/22/18 at 00:00 Piperacillin Sod/ Tazobactam Sod 100 ml @ 200 mls/hr Q6 IVPB Last administered on 11/24/18 12:22; Admin Dose 200 MLS/HR; Start 11/22/18 at 00:00 Elvitegravir/ Cobicis/Emtricit/ Tenof (Genvoya Tablet) 1 each DAILY PO Last administered on 11/24/18 08:22; Admin Dose 1 EACH; Start 11/22/18 at 13:30 Tiotropium [place] (Spiriva) 1 inh DAILY INH Last administered on 11/24/18 08:21; Admin Dose 1 INH; Start 11/22/18 at 13:30 Fluticasone/ Vilanterol (Breo Ellipta 100-25 Mcg Inh) 1 inh DAILY INH Last administered on 11/24/18 08:21; Admin Dose 1 INH; Start 11/23/18 at 09:00 Albuterol/ Ipratropium (Duoneb) 3 ml Q4H RESP THERAPY PRN HHN SHORTNESS OF BREATH Last administered on 11/22/18 15:34; Admin Dose 3 ML; Start 11/22/18 at 13:30 Acetaminophen (Tylenol Tab) 650 mg Q6H PRN PO MILD PAIN(1-3)OR ELEVATED TEMP Last administered on 11/24/18 05:54; Admin Dose 650 MG; Start 11/22/18 at 16:00 Guaifenesin/ Codeine Phosphate (Robitussin Ac Liquid Cup) 10 ml Q4H PRN PO COUGH Last administered on 11/24/18at 05:55; Admin Dose 10 ML; Start 11/23/18 at 01:00 MARQUISE ESPITIA MD November 24, 2018 16:17
[2018-11-24] MEDS ORDERED: METR500T PO (16:20)
[2018-11-24] MEDS ORDERED: LEVO500T48 PO (16:20)
[2018-11-24] MEDS ORDERED: GUAI-637 PO (16:21)
[2018-11-24 20:17] VITALS: BP 140/88; PULSE 73; RESP 18
[2018-11-25] MEDS: PIPER-TAZO 3.375 GM IV (PMX) 100 ML IVPB SCH (00:56)
[2018-11-25 02:26] VITALS: BP 142/63; PULSE 76; RESP 18
[2018-11-25] MEDS: GUAIFENESIN/CODEINE 5ML CUP PO PRN (03:00)
[2018-11-25] MEDS: ONDANSETRON 4 MG INJ IV PRN (04:46)
--- NOTE | 2018-11-25 16:37 | DS ---
Date/Time of Note Date/Time of Note DATE: 11/25/18 TIME: 16:34 Discharge Summary Admission/Discharge Info Admit Date/Time November 21, 2018 at 20:18 Discharge Date/Time November 25, 2018 at 05:10 Discharge Diagnosis 1. Acute colonic diverticulitis, microperforation, stable, antibiotics, follow up with PCP, needs elective colonoscopy in 6 weeks 2. Hypertension, controlled 3. COPD: No sign of acute exacerbation 4. History of HIV: 5. Normocytic anemia, chronic, follow up with PCP Patient Condition: Stable Hospital Course Patient is a 53-year-old female with a history of hypertension, COPD, HIV who initially presented to [facility] complaining of abdominal pain and diarrhea. She was diagnosed with diverticulitis in the transferred to [facility] for insurance reason. She was afebrile with normal WBC. CT scan indicates diverticulitis. Pateint is treated with bowel resting, IVF, and antibiotics. Symptoms improved. Patient tolerates diet well. She is discharged on flagyl and levaquin and instructed to follow up with PCP and to have elective colonoscopy in 6 weeks. Home Meds Active Scripts Guaifenesin* (Robitussin*) 100 Mg/5 Ml Syrup, 100 MG PO Q6H PRN for COUGH for 10 Days, ML Prov:MARQUISE ESPITIA MD 11/24/18 Levofloxacin* (Levaquin*) 500 Mg Tablet, 500 MG PO DAILY for 11 Days, TAB Prov:MARQUISE ESPITIA MD 11/24/18 Metronidazole* (Flagyl*) 500 Mg Tablet, 500 MG PO Q8 for 11 Days, TAB Prov:MARQUISE ESPITIA MD 11/24/18 Oxymetazoline Hcl* (Afrin [place]*) 0.05% - 15 Ml [place], 2 SPRAY NASAL BID for 7 Days, #1 SPRAY otc Prov:ANITRA ROBLEDO MD 09/04/17 Guaifenesin (Guaifenesin) 600 Mg Tablet.sa, 600 MG PO BID for 7 Days, #10 otc as needed for cough congestion Prov:ANITRA ROBLEDO MD 09/04/17 Albuterol Sulfate* (Ventolin HFA*) 18 Gm Hfa.aer.ad, 2 PUFF INHALATION Q6H for 1 Day, #2 INHALER 2 sprays every 2-6 hours as needed for wheezing/cough with congestion Prov:ANITRA ROBLEDO MD 09/04/17 Reported Medications Atorvastatin Calcium* (Atorvastatin Calcium*) 20 Mg Tablet, 20 MG PO QHS, #30 TAB 11/21/18 Mometasone-Formoterol (Dulera) 100-5 Mcg - 13 Gm Hfa.aer.ad, 2 PUFFS INHALATION BID, #1 INHALER 08/31/17 Tiotropium [place]* (Spiriva*) 18 Mcg Cap.w.dev, 1 CAP INHALATION DAILY, #30 CAP 08/31/17 Hydrochlorothiazide* (Hydrochlorothiazide*) 25 Mg Tab, 25 MG PO DAILY, #30 TAB 08/31/17 Benazepril Hcl* (Benazepril Hcl*) 40 Mg Tablet, 40 MG PO DAILY, #30 TAB 08/31/17 Elviteg/Michelle/Emtric/Tenofo [place] (Genvoya Tablet) 1 Each Tablet, 1 EACH PO DAILY, TAB 09/23/16 Discontinued Reported Medications Amitriptyline Hcl* (Amitriptyline Hcl*) 50 Mg Tablet, 50 MG PO QHS, #30 TAB 08/31/17 Follow-up Plan PCP in one week GI for elective colonoscopy in 6 weeks Primary Care Provider Care Physician No Primary MARQUISE ESPITIA MD November 25, 2018 16:37
== END 2018-11-25 05:10 | disposition home or self-care (01) | DRG 392 ==
LOC: 2NE 20:18
PROVIDERS: ADMIT Hospitalist; ATTEND Internal Medicine
DX: K57.20 Diverticulitis of large intestine with perforation and abscess without bleeding (principal); D64.9 Anemia, unspecified; I10 Essential (primary) hypertension; J44.9 Chronic obstructive pulmonary disease, unspecified
CPT/HCPCS: 80048; 80053; 83735; 84100; 85025; 86360; 87536; 94664; J1885; J2270; J2405; J2543; J7042